=== PATIENT | female | born 1970 | race Caucasian/White ===

== ENCOUNTER → 2018-10-21 | Outpatient (CLI) | payer BC ==
--- NOTE | 2018-10-22 14:23 | CONS ---
Assessment/Plan Assessment/Plan Hospital Course (Demo Recall) 47-year-old female complaining of left worse than right anterior knee pain. Her history examination and and symptoms and radiographs are consistent with patellofemoral syndrome. We will start physical therapy and NSAID regiment. Follow-up 3 months Consultation Date/Type/Reason Admit Date/Time Date of Consultation: Oct 21, 2018 Reason for Consultation Bilateral knee pain Date/Time of Note DATE: 10/22/18 TIME: 14:17 Hx of Present Illness Is a 47-year-old female with a chief complaint of right and left knee pain. The pain is worse in the left knee. The pain began approximately couple months ago. The patient's pain is in the anterior aspect of the right and left knee. Pain is not radiating to the lower leg. The pain is rated as a 4/10. Patient denies complaints of numbness or tingling. The pain is exacerbated by climbing stairs and squats and when sitting down such as driving for long periods of time. Pain is not relieved by NSAID's. ----- Duration: Couple months Injury: No Walking tolerance: Unlimited Limp: No Support: None Swelling: No Crepitation: Yes Instability: No Stairs: Painful Physical Therapy: No Injections: No NSAID's: As needed Prior surgery: No Back pain: No Hip pain: No Risk of AVN : No Patient denies fever, chills, shortness of breath, chest pain, nausea/vomiting, constipation, diarrhea, numbness, and tingling. Past Medical History Medical History: no pertinent history Past Surgical History Family History Significant Family History: no pertinent family hx Social History Alcohol Use: none Smoking Status: Never smoker Drug Use: none Exam/Review of Systems Exam Vitals Weight: 112 pounds Height: 5 foot Temperature: 90.2 Heart Rate: 90 Blood Pressure: 130/63 Respiratory Rate: 12 Exam General: Awake, alert, in no acute distress, pleasant and cooperative Heart: regular rhythm Lungs: breathing comfortably, no tachypnea or dyspnea MUSCULOSKELETAL: Right and Left Knee This is a well developed female who is alert, oriented times three and in no apparent distress. Skin is intact over the right and left knee as well as the lower extremity with no abrasions, lacerations, or ulcerations. Observation of the patient's gait reveals a non antalgic gait with no thrust. Frontal plane alignment is neutral on the right and left knees. The knee is nontender to palpation. The patient demonstrates grinding anteriorly with ROM. Range of motion: 0 extension to approximately 140 degrees of flexion. Collateral ligament testing reveals no instability with varus or valgus stress at 0 and 30 degrees of flexion. Negative Edward's and negative posterior drawer. Neurovascularly intact with 5/5 EHL/tibialis anterior/gastroc. Sensation intact to light touch in a sural, saphenous, deep peroneal, superficial peroneal, medial and lateral plantar nerve distribution. Palpable, symmetric dorsalis pedis and posterior tibial pulses in both lower extremities. Hip examination normal Imaging Imaging The patient received a standard set of films today that were personally reviewed. Imaging included a standing bilateral knee AP, PA flexion, merchant views and a dedicated lateral of the affected knee: There is neutral alignment of the knee. There is no loss of joint space in any compartment(s). There is no osteophyte formation. There is no no subchondral sclerosis. There are no subchondral cysts. Normal knee x-ray GENESIS LOYOLA MD Oct 22, 2018 14:23
--- NOTE | 2018-10-23 22:33 | RADRPT ---
PROCEDURE: XR Knees. CLINICAL INDICATION: Bilateral knee pain. TECHNIQUE: Total of eight views. Weightbearing frontal, oblique, and lateral views of the both kne es. Patellar views of both knees. COMPARISON: No prior study is available for comparison. FINDINGS: There is no fracture or dislocation. The soft tissues are normal. Articular surfaces are intact. There is no lytic or blastic lesion. There is no radiopaque foreign body. IMPRESSION: 1. Unremarkable images of both knees. RPTAT: QQ .Joe Levine MD, MD Date Time Electronically viewed and signed by .Joe Levine MD, MD on 10/23/2018 22:33 .R/
== END | disposition home or self-care (01) ==
LOC: HKI 11:15
PROVIDERS: ATTEND Orthopaedic Surgery Adult Reconstructive Orthopaedic Surgery
DX: M25.562 Pain in left knee (principal); M25.561 Pain in right knee
CPT/HCPCS: 73564; G0463